=== PATIENT | female | born 1950 | race Caucasian/White ===

== ENCOUNTER 2019-06-30 13:09 | Emergency (ER) | payer MEDICARE, SELFPAY ==
--- NOTE | ~2019-06-30 | XR_ITS ---
EXAMINATION: XR abdomen/kub 1V DATE: 06/30/2019 14:23 INDICATION: Right lower quadrant abdominal pain. Diarrhea. TECHNIQUE: A supine view of the abdomen on 2 radiographs was obtained. COMPARISON: None. FINDINGS: There are no dilated loops of bowel. There is a paucity of stool in the colon. Calcificatio ns in the left pelvis are likely phleboliths. There is a total right hip arthroplasty. IMPRESSION: 1. Normal bowel gas pattern. Reviewed, dictated and finalized at location A. [employer] WORK[employer]
[2019-06-30 13:22] VITALS: BP 154/74; PULSE 74; RESP 19; TEMP 37.8; O2SAT 99
--- NOTE | 2019-06-30 14:00 | ED.GENADULT ---
HPI - General Adult General Chief complaint: Abdominal Pain Stated complaint: LOWER R ABD PAIN Time Seen by Provider: 06/30/19 14:00 History of Present Illness HPI narrative: 68-year-old female presents with complaints of intermittent right lower abdomen pain for 3-4 days. No treatment. No significant pelvic pain. No vaginal discharge. No concerns for STDs. No fever or chills. No nausea, vomiting, or diarrhea. No flank pain. Exacerbating factors consist of palpation to RT lower quadrant and certain movements. Denies dysuria, hematuria, and vaginal bleeding. No blood in stool or constipation. Last BM was 06/30/19, normal loose stool per Rut due to history of IBS. History of Diverticulitis and Appendectomy. No cough or dyspnea. Denies chest pain, back pain, headache, and dizziness. Rut says no known injury did recall pulling grand kids up and down hills in a wagon 5-6 days ago. Urine out put with in normal limits. Some parts of this dictation were generated by voice recognition software and may contain typographical and/or grammatical inaccuracies. Related Data Home Medications Medication Instructions Recorded Confirmed chlordiazepoxide HCl 10 mg capsule 10 mg PO Q12H 06/20/19 06/30/19 furosemide 20 mg tablet 20 mg PO QAM PRN 06/20/19 06/30/19 potassium chloride 10 mEq 10 meq PO DAILY 06/20/19 06/30/19 tablet,extended release(part/cryst) Allergies Allergy/AdvReac Type Severity Reaction Status Date / Time Sulfa (Sulfonamide Allergy Severe Swelling Verified 06/20/19 11:55 Antibiotics) of Lip/Tongue/Throat sulfamethizole Allergy Severe Swelling Verified 06/20/19 11:55 of Lip/Tongue/Throat lisinopril Allergy Unknown Skin Verified 06/20/19 11:55 Reaction Review of Systems Review of Systems: Narrative: CONSTITUTIONAL: Denies fever, chills, sweats. EYES: Denies visual changes, redness, discharge. ENT: Denies rhinorrhea, congestion, sore throat, otalgia. CARDIOVASCULAR: Denies chest pain, palpitations, edema. RESPIRATORY: Denies dyspnea, wheezing, cough. GASTROINTESTINAL: Complains of intermittent right lower abdominal pain. Denies nausea, vomiting, diarrhea. GENITOURINARY: Denies dysuria, hematuria, abnormal discharge. SKIN: Denies rash or itching. MUSCULOSKELETAL: Denies acute back pain, joint pain, or myalgia. NEUROLOGIC: Denies numbness or focal weakness. PSYCHIATRIC: Denies anxiety or depression. All other systems reviewed are negative, except as documented in HPI and below. [facility] Past Medical History Medical History (Updated 07/02/19 @ 00:14 by ANALIA Freeman) Adjustment disorder with anxious mood Allergic rhinitis Essential (primary) hypertension Gastro-esophageal reflux disease with esophagitis Hypertension Irritable bowel syndrome Melanoma Pelvic adhesions Polyp of colon Right inguinal hernia Surgical History Surgical History (Updated 06/30/19 @ 14:16 by ANALIA Freeman) H/O right inguinal hernia repair History of hip surgery Total left hip then a revision Hx of appendectomy Family History Family History (Updated 06/30/19 @ 14:17 by ANALIA Freeman) Mother Heart disease Hypertension Diabetes mellitus Breast cancer Father Heart disease Hypertension Diabetes mellitus Social History Social History (Updated 06/30/19 @ 14:17 by ANALIA Freeman) Smoking status: Never smoker Second hand tobacco smoke exposure: No Alcohol intake: current Substance use: never Living arrangements: with family Occupation/Education: retired Gender identity (if verbalized by the patient): Female Comments At time of signature, agree with nurse past medical, surgical, social, and family history. There is no relevant family history pertinent to the presenting complaint. Exam Narrative: Exam Narrative: GENERAL: This is a well-nourished, well-developed patient, in no apparent distress. Talks in full sen
== END 2019-06-30 14:58 | disposition home or self-care (01) ==
PROVIDERS: Emergency Provider Nurse Practitioner Family; PCP Family Medicine
DX: R10.31 Right lower quadrant pain (principal); I10 Essential (primary) hypertension; K21.0 Gastro-esophageal reflux disease with esophagitis; Z85.820 Personal history of malignant melanoma of skin; Z96.642 Presence of left artificial hip joint
CPT/HCPCS: 74018; 99213; G0463

== ENCOUNTER 2020-03-10 12:57 | Emergency (ER) | payer MEDICARE, SELFPAY ==
[2020-03-10 13:12] VITALS: BP 164/74; PULSE 71; RESP 16; TEMP 36.9; O2SAT 98
--- NOTE | 2020-03-10 13:37 | ED.URI ---
HPI - URI/Sore Throat General Chief Complaint: Upper Respiratory Infection Stated Complaint: sore throat Source: patient Mode of arrival: ambulatory Limitations: no limitations History of Present Illness HPI Narrative: Patient is a 69-year-old female who presents complaining of sore throat. She reports sore throat x3 to 4 days. Denies fever, denies cough, denies shortness of breath. She has not been taking [id number] medications at this time. MD elicited complaint: sore throat Related Data Allergies Allergy/AdvReac Type Severity Reaction Status Date / Time Sulfa (Sulfonamide Allergy Severe Swelling Verified 03/10/20 13:23 Antibiotics) of Lip/Tongue/Throat sulfamethizole Allergy Severe Swelling Verified 03/10/20 13:23 of Lip/Tongue/Throat lisinopril Allergy Unknown Skin Verified 03/10/20 13:23 Reaction Review of Systems Review of Systems: Narrative: CONSTITUTIONAL: Denies fever, chills, or sweats. EYES: Denies visual changes, redness, or discharge. ENT: Denies rhinorrhea, congestion, reports sore throat CARDIOVASCULAR: Denies chest pain, palpitations, or edema. RESPIRATORY: Denies cough or dyspnea. GASTROINTESTINAL: Denies abdominal pain, nausea, vomiting, or diarrhea. GENITOURINARY: Denies dysuria or hematuria. SKIN: Denies rash or itching. MUSCULOSKELETAL: Denies back pain, joint pain, or myalgia. NEUROLOGIC: Denies headache, numbness, dizziness, or weakness. PSYCHIATRIC: Denies anxiety or depression. [facility] Past Medical History Medical History Adjustment disorder with anxious mood Allergic rhinitis Essential (primary) hypertension Gastro-esophageal reflux disease with esophagitis Hypertension Irritable bowel syndrome Melanoma Pelvic adhesions Polyp of colon Right inguinal hernia Seborrheic keratoses, inflamed Surgical History Surgical History H/O right inguinal hernia repair History of hip surgery Total left hip then a revision Hx of appendectomy Family History Family History Mother Heart disease Hypertension Diabetes mellitus Breast cancer Father Heart disease Hypertension Diabetes mellitus Social History Social History Smoking status: Never smoker Second hand tobacco smoke exposure: No Alcohol intake: current Substance use: never Gender identity (if verbalized by the patient): Female Exam Narrative: Exam Narrative: GENERAL: Well-appearing, well-nourished, and in no acute distress. HEAD: Normocephalic, atraumatic. EYES: No redness or drainage. ENT: Mucous membranes pink and moist. Throat normal erythema, edema and area of ulceration. Uvula midline. NECK: AROM. Supple. No lymphadenopathy. CHEST: No respiratory distress. EXTREMITIES: Normal range of motion. SKIN: Warm, dry, no rash. NEURO: No focal deficits. Alert and oriented x3. Gait steady. PSYCH: Normal affect. No signs of depression or anxiety. Course Vital Signs Vital signs: Vital Signs Temperature 36.9 C 03/10/20 13:12 Pulse Rate 71 03/10/20 13:12 Respiratory Rate 16 03/10/20 13:12 Blood Pressure 164/74 H 03/10/20 13:12 Pulse Oximetry 98 03/10/20 13:12 Temperature 36.9 C 03/10/20 13:12 Pulse Rate 71 03/10/20 13:12 Respiratory Rate 16 03/10/20 13:12 Blood Pressure 164/74 H 03/10/20 13:12 Pulse Oximetry 98 03/10/20 13:12 Reviewed. Patient has been instructed to follow-up with her PCP regarding her blood pressure. MDM - URI/Sore Throat MDM Narrative Medical decision making narrative: Patient's rapid strep and influenza are negative at this time. Discussed with patient Covid testing and quarantine. Patient to have Covid testing. Patient is stable for discharge to home with outpatient follow-up. Patient rob
== END 2020-03-10 14:01 | disposition home or self-care (01) ==
PROVIDERS: Emergency Provider Nurse Practitioner; PCP Family Medicine
DX: J02.9 Acute pharyngitis, unspecified (principal); Z20.828 Contact with and (suspected) exposure to other viral communicable diseases; I10 Essential (primary) hypertension; K21.00 Gastro-esophageal reflux disease with esophagitis, without bleeding; Z85.820 Personal history of malignant melanoma of skin
CPT/HCPCS: 87081; 87804; 87880; 99213; G0463

== ENCOUNTER 2020-03-11 06:51 | Outpatient (NON) | payer MEDICARE, SELFPAY ==
[2020-03-12 00:30] LABS: SARS-CoV-2 RNA PCR Negative
== END 2020-03-11 06:52 ==
LOC: ANHCOVIDDT 07:10
PROVIDERS: PCP Family Medicine; Visit Provider Family Medicine
DX: Z20.828 Contact with and (suspected) exposure to other viral communicable diseases (principal)
CPT/HCPCS: 87635; C9803; U0003

== ENCOUNTER → 2020-09-17 09:26 | Outpatient (CLI) | payer MEDICARE, SELFPAY ==
--- NOTE | ~2020-09-17 | XR_ITS ---
XR chest 2V DATE: 09/17/2020 09:38 INDICATION: Dyspnea TECHNIQUE: PA and lateral views COMPARISON: 06/02/2012 PA and lateral chest FINDINGS: Heart size is within normal limits with transverse screw thoracic ratio approximately 14/30 . There is minimal aortic unfolding. No hilar or mediastinal enlargement. No pulmonary infiltrate or consolidation, pleural effusion or pulmonary vascular congestion or pneumo thorax is detected. There is mild discoid scarring or less likely discoid atelectasis at the lingula, with similar findin g on 06/02/2012. Dextroscoliosis and degenerative spurring of the thoracic spine. IMPRESSION: No active disease Reviewed, dictated and finalized at location B. IMPRESSION: No active disease
== END ==
PROVIDERS: PCP Family Medicine; Visit Provider Family Medicine
DX: R06.00 Dyspnea, unspecified (principal)
CPT/HCPCS: 71046

== ENCOUNTER 2020-09-18 13:47 | Emergency (ER) | payer MEDICARE, SELFPAY ==
[2020-09-18 13:54] VITALS: BP 161/71; PULSE 76; RESP 16; TEMP 36.8; O2SAT 98
--- NOTE | 2020-09-18 13:57 | ED.SOB ---
HPI - SOB/Dyspnea General Chief Complaint: Shortness of Breath/Dyspnea Stated Complaint: shortness of breath Time Seen by Provider: 09/18/20 14:18 Source: patient and RN notes reviewed Mode of arrival: ambulatory Limitations: no limitations History of Present Illness HPI Narrative: 69-year-old female presents with concern for shortness of breath. Reports since she has been feeling winded with activity such as walking longer distances and using stairs. She reports a feeling of not being able to get a full breath or expel a full breath. She reports she was seen by her doctor at the beginning of August and was given amoxicillin for bronchitis which did not improve her symptoms. She denies frequent cough or regular cough. Reports occasional cough with postnasal drainage. She denies fever, body aches. She reports bilateral lower extremity swelling, reports she has had this on a chronic basis and has as needed Lasix that she uses. Reports her swelling has been worse lately. She reports recently taking her Lasix, which she only takes when she needs it, and had a 8 pound weight loss overnight with the Lasix. She denies chest pain, diaphoresis. She reports she has an appointment for an echocardiogram on October 31. She also reports over the last several days she has had postnasal drainage and some nasal congestion, occasional cough. MD elicited complaint: shortness of breath Related Data Home Medications Medication Instructions Recorded Confirmed aspirin 81 mg tablet,delayed 81 mg PO DAILY 09/01/20 09/01/20 release biotin 5,000 mcg disintegrating 10,000 mcg PO DAILY 09/01/20 09/01/20 tablet furosemide 20 mg tablet 20 mg PO DAILY PRN tablet 09/01/20 09/01/20 melatonin 5 mg chewable tablet 5 mg PO DAILY 09/01/20 09/01/20 multivitamin 1 tablet PO DAILY 09/01/20 09/01/20 potassium chloride 20 mEq oral 20 meq PO DAILY PRN 09/01/20 09/01/20 packet L. [id number] cit-yeast cap PO 09/18/20 [Culturelle Immune Defense] chlordiazepoxide HCl 10 mg PO BID PRN 09/18/20 09/18/20 ivermectin 6 mg PO ONCE 09/18/20 09/18/20 vitamin E 800 unit PO DAILY 09/18/20 09/18/20 Allergies Allergy/AdvReac Type Severity Reaction Status Date / Time Sulfa (Sulfonamide Allergy Severe Swelling Verified 09/18/20 13:52 Antibiotics) of Lip/Tongue/Throat sulfamethizole Allergy Severe Swelling Verified 09/18/20 13:52 of Lip/Tongue/Throat lisinopril Allergy Unknown Skin Verified 09/18/20 13:52 Reaction Review of Systems Review of Systems: Narrative: CONSTITUTIONAL: Denies malaise, chills, sweats, or fever. EYES: Denies visual changes, redness, or discharge. ENT: Reports rhinorrhea, congestion. Denies sinus pain, otalgia and sore throat. CARDIOVASCULAR: Denies chest pain, palpitations, or edema. RESPIRATORY: Reports occasional cough. Reports dyspnea. GASTROINTESTINAL: Denies abdominal pain, nausea, vomiting, diarrhea SKIN: Denies rash or itching. MUSCULOSKELETAL: Denies myalgia. NEUROLOGIC: Denies headache. All systems reviewed & are unremarkable except as noted in HPI and below PMFSH Past Medical History Medical History Adjustment disorder with anxious mood Allergic rhinitis Essential (primary) hypertension Gastro-esophageal reflux disease with esophagitis Hypertension Irritable bowel syndrome Melanoma Pelvic adhesions Polyp of colon Right inguinal hernia Seborrheic keratoses, inflamed Surgical History Surgical History H/O right inguinal hernia repair History of hip surgery Total left hip then a revision Hx of appendectomy Family History Family History Mother Heart disease Hypertension Diabetes mellitus Breast cancer Father Heart disease Hypertension Diabetes mellitus Social History Social History (Reviewed 09/01/20
[2020-09-18 13:59] VITALS: BP 161/71; PULSE 76; RESP 16; TEMP 36.8; O2SAT 98
== END 2020-09-18 14:40 | disposition home or self-care (01) ==
PROVIDERS: Emergency Provider Nurse Practitioner; PCP Family Medicine
DX: R06.02 Shortness of breath (principal); J30.2 Other seasonal allergic rhinitis; I10 Essential (primary) hypertension; K21.00 Gastro-esophageal reflux disease with esophagitis, without bleeding; Z85.820 Personal history of malignant melanoma of skin
CPT/HCPCS: 99213; G0463

== ENCOUNTER 2020-10-25 17:06 | Emergency (ER) | payer MEDICARE, SELFPAY ==
[2020-10-25 17:14] VITALS: BP 203/77; PULSE 81; RESP 16; TEMP 37.1; O2SAT 98
--- NOTE | 2020-10-25 17:15 | ED.GENADULT ---
HPI - General Adult General Chief complaint: Upper Respiratory Infection Stated complaint: head pain/neck pain/ear pain Time Seen by Provider: 10/25/20 17:16 Source: patient Mode of arrival: ambulatory Limitations: no limitations History of Present Illness HPI narrative: 69-year-old female patient presents to the [facility] with complaints of a right-sided headache that started approximately 1 hour ago. Patient states she is also been having issues with feeling like her ear has been full on the right side and complains of pain behind the right ear when she touches the area. Patient states she is had a little bit of a runny nose and stuffy nose recently. Denies taking any thing for the headache prior to arrival today. Denies taking any sinus medication. Patient states she does also have a little history of anxiety. Patient states that she had an echocardiogram last month which was okay that she is aware of. Patient states she is supposed to be following up with her doctor next week. Patient denies chest pain, shortness of breath, nausea, vomiting or diarrhea. Patient states she was concerned about the headache and to make sure it was not an aneurysm. Related Data Home Medications Medication Instructions Recorded Confirmed aspirin 81 mg tablet,delayed 81 mg PO DAILY 09/01/20 09/18/20 release biotin 5,000 mcg disintegrating 10,000 mcg PO DAILY 09/01/20 09/18/20 tablet melatonin 5 mg chewable tablet 6 mg PO DAILY 09/01/20 09/18/20 multivitamin 1 tablet PO DAILY 09/01/20 09/18/20 L. [id number] cit-yeast cap PO 09/18/20 [Culturelle Immune Defense] ivermectin 6 mg PO ONCE 09/18/20 09/18/20 vitamin E 800 unit PO DAILY 09/18/20 09/18/20 Allergies Allergy/AdvReac Type Severity Reaction Status Date / Time Sulfa (Sulfonamide Allergy Severe Swelling Verified 09/18/20 13:52 Antibiotics) of Lip/Tongue/Throat sulfamethizole Allergy Severe Swelling Verified 09/18/20 13:52 of Lip/Tongue/Throat lisinopril Allergy Unknown Skin Verified 09/18/20 13:52 Reaction Review of Systems Review of Systems: Narrative: CONSTITUTIONAL: Denies fever, chills, or sweats. EYES: Denies visual changes, redness, or discharge. ENT: Denies rhinorrhea, congestion, sore throat, or otalgia. CARDIOVASCULAR: Denies chest pain, palpitations, or edema. RESPIRATORY: Denies cough or dyspnea. GASTROINTESTINAL: Denies abdominal pain, nausea, vomiting, or diarrhea. GENITOURINARY: Denies dysuria or hematuria. SKIN: Denies rash or itching. MUSCULOSKELETAL: Denies back pain, joint pain, or myalgia. NEUROLOGIC: Positive right-sided headache x1 hour, denies numbness, or weakness. PSYCHIATRIC: Denies anxiety or depression. [facility] Past Medical History Medical History Adjustment disorder with anxious mood Allergic rhinitis Essential (primary) hypertension Gastro-esophageal reflux disease with esophagitis Hypertension Irritable bowel syndrome Melanoma Pelvic adhesions Polyp of colon Right inguinal hernia Seborrheic keratoses, inflamed Surgical History Surgical History H/O right inguinal hernia repair History of hip surgery Total left hip then a revision Hx of appendectomy Family History Family History Mother Heart disease Hypertension Diabetes mellitus Breast cancer Father Heart disease Hypertension Diabetes mellitus Social History Social History Smoking status: Never smoker Second hand tobacco smoke exposure: No Alcohol intake: current Substance use: never Gender identity (if verbalized by the patient): Female Comments At the time of my signature I agree with nursing past medical history, surgical, social, and family history. There is no relevant family history pertinent to
--- NOTE | 2020-10-25 17:34 | ECG_ITS ---
Measurements Intervals [place] Rate: 78 P: 38 LA: 171 QRS: -14 QRSD: 88 T: 1 QT: 383 QTc: 436 Interpretive Statements SINUS RHYTHM VOLTAGE CRITERIA FOR LVH POOR R WAVE PROGRESSION, ANTERIOR LEADS BORDERLINE ST-T WAVE ABNORMALITY- ANT/INF LEADS BASELINE ARTIFACT- I, II, III, AVR, AVL BORDERLINE ECG Electronically Signed On 10-25-2020 19:31:54 CDT by Mendez Alvarez D.O.
== END 2020-10-25 17:54 | disposition short-term general hospital (02) ==
PROVIDERS: Emergency Provider Nurse Practitioner Family; PCP Family Medicine
DX: R51.9 Headache, unspecified (principal); I10 Essential (primary) hypertension; K21.00 Gastro-esophageal reflux disease with esophagitis, without bleeding; Z79.82 Long term (current) use of aspirin
CPT/HCPCS: 93005; 99213; G0463

== ENCOUNTER 2020-10-25 18:17 | Emergency (ER) | payer MEDICARE, SELFPAY ==
[2020-10-25] VITALS (7 sets, daily range): BP systolic 149–215; BP diastolic 58–94; PULSE 78–84; RESP 15–22; TEMP 36.4; O2SAT 92–98
--- NOTE | ~2020-10-25 | CT_ITS ---
EXAMINATION: CT brain wo con DATE: 10/25/2020 20:25 INDICATION: Headache. TECHNIQUE: Computed tomography (CT) of the head was performed without intravenous contrast. The mA wa s adjusted according to patient size. Iterative reconstruction technique was employed. The dose-lengt h product was 605.33 mGy-cm. COMPARISON: None FINDINGS: There is no intracranial hemorrhage, acute infarction, or abnormal intracranial mass lesion . The ventricles are normal in size. The orbits are normal. The paranasal sinuses are clear. The mast oid air cells are normal. IMPRESSION: 1. Normal brain. Reviewed, dictated and finalized at location A. IMPRESSION: 1. Normal brain.
--- NOTE | 2020-10-25 18:22 | ECG_ITS ---
Measurements Intervals [place] Rate: 80 P: 54 ID: 166 QRS: -16 QRSD: 98 T: 0 QT: 391 QTc: 452 Interpretive Statements SINUS RHYTHM POSSIBLE LEFT ATRIAL ENLARGEMENT DELAYED PRECORDIAL R/S TRANSITION POSSIBLE LEFT VENTRICULAR HYPERTROPHY BORDERLINE T WAVE ABNORMALITY- INFERIOR LEADS BASELINE ARTIFACT- II, III, AVF Electronically Signed On 10-26-2020 7:46:43 CDT by Mendez Alvarez D.O.
[2020-10-25 18:41] LABS: Basophils Percent Auto 0.5 % (0.2-1.2); Eosinophils Absolute Auto 0.2 K/mm3 (0-0.3); Hematocrit 43.9 % (37.0-47.0); Hemoglobin 14.3 g/dL (12.0-15.0); Immature Granulocyte Absolute 0.03 K/mm3 (0.00-0.031); Immature Granulocyte Percent A 0.3 % (0-0.5); Lymphocytes Absolute Auto 1.83 K/mm3 (0.9-3.2); Lymphocytes Percent Auto 21.1 % (18.3-44.2); Mean Corpuscular HGB Conc 32.6 g/dl (32-36); Mean Corpuscular Volume 95.2 fl (80-100); Mean Platelet Volume 10.4 fl (7.4-10.4); Monocytes Absolute Auto 0.5 K/mm3 (0.1-0.6); Monocytes Percent Auto 5.2 % (2.6-8.5); Neutrophils Absolute Auto 6.2 K/mm3 (1.3-6.7); Neutrophils Percent Auto 70.9 % (45.5-73.1); Platelet Count Result 289 k/mm3 (150-375); Red Blood Count 4.61 M/mm3 (4.2-5.4); Red Cell Distribution Width 13.5 % (11.5-14.5); White Blood Count 8.7 K/mm3 (4.5-10.0)
[2020-10-25 18:52] LABS: Alanine Aminotransferase 38 U/L (4-35); Albumin Level 4.6 g/dL (3.5-5.1); Alkaline Phosphatase 81 U/L (38-126); Anion Gap 9 mmol/L (8-16); Aspartate Amino Transferase 40 U/L (14-36); Bilirubin,Total 0.3 mg/dL (0.2-1.3); Blood Urea Nitrogen 16 mg/dL (7-17); Carbon Dioxide 28 mmol/L (22-30); Chloride 107 mmol/L (98-107); Estimated CRCL calculation 45 ml/min; Estimated Glomerular Filt Rate 55; Glucose 93 mg/dL (65-105); Potassium 4.1 mmol/L (3.4-5.0); Sodium 144 mmol/L (137-145)
--- NOTE | 2020-10-25 19:48 | ED.GENADULT ---
HPI - General Adult General Chief complaint: Recheck/Abnormal Lab/Rx Stated complaint: Hedache, High Blood Pressure Time Seen by Provider: 10/25/20 19:45 History of Present Illness HPI narrative: Patient is 69 years old white female came to the emergency room with occipital headache started few hours ago lasted for 2 hours then resolved. Also been complaining of postnasal discharge for the last few weeks. Patient reports a lot of stress in her life lately, been taking care of 3 grandkids on average 3 to 4 days a week and one of them is extremely L, also taking care of her elderly mom who is extremely talkative and does not sleep at night. Patient used to be on antidepression/anxiety medication stopped lately because of the potential side effects. Patient on Bystolic 10 mg once a day. Does not check her blood pressure on regular basis, patient went to urgent care today then referred to our emergency room because of elevated blood pressure. Patient denies any fever, chills, nausea, vomiting, chest pain, shortness of breath, back pain. Related Data Home Medications Medication Instructions Recorded Confirmed aspirin 81 mg tablet,delayed 81 mg PO DAILY 09/01/20 09/18/20 release biotin 5,000 mcg disintegrating 10,000 mcg PO DAILY 09/01/20 09/18/20 tablet melatonin 5 mg chewable tablet 6 mg PO DAILY 09/01/20 09/18/20 multivitamin 1 tablet PO DAILY 09/01/20 09/18/20 L. [id number]-D-[id number] cit-yeast cap PO 09/18/20 [Culturelle Immune Defense] ivermectin 6 mg PO ONCE 09/18/20 09/18/20 vitamin E 800 unit PO DAILY 09/18/20 09/18/20 Allergies Allergy/AdvReac Type Severity Reaction Status Date / Time Sulfa (Sulfonamide Allergy Severe Swelling Verified 10/25/20 19:35 Antibiotics) of Lip/Tongue/Throat sulfamethizole Allergy Severe Swelling Verified 10/25/20 19:35 of Lip/Tongue/Throat lisinopril Allergy Unknown Skin Verified 10/25/20 19:35 Reaction Review of Systems Review of Systems: Narrative: CONSTITUTIONAL: Denies fever, chills, or sweats. EYES: Denies visual changes, redness, or discharge. ENT: Denies rhinorrhea, congestion, sore throat, or otalgia. CARDIOVASCULAR: Denies chest pain, palpitations, or edema. RESPIRATORY: Denies cough or dyspnea. GASTROINTESTINAL: Denies abdominal pain, nausea, vomiting, or diarrhea. GENITOURINARY: Denies dysuria or hematuria. SKIN: Denies rash or itching. MUSCULOSKELETAL: Denies back pain, joint pain, or myalgia. NEUROLOGIC: Denies headache, numbness, or weakness. PSYCHIATRIC: Denies anxiety or depression. [facility] Past Medical History Medical History Adjustment disorder with anxious mood Allergic rhinitis Essential (primary) hypertension Gastro-esophageal reflux disease with esophagitis Hypertension Irritable bowel syndrome Melanoma Pelvic adhesions Polyp of colon Right inguinal hernia Seborrheic keratoses, inflamed Surgical History Surgical History H/O right inguinal hernia repair History of hip surgery Total left hip then a revision Hx of appendectomy Family History Family History Mother Heart disease Hypertension Diabetes mellitus Breast cancer Father Heart disease Hypertension Diabetes mellitus Social History Social History Smoking status: Never smoker Second hand tobacco smoke exposure: No Alcohol intake: current Substance use: never Gender identity (if verbalized by the patient): Female Exam Narrative: Exam Narrative: General appearance: Well-developed, well-nourished Skin: Normal color Head: Normocephalic, nontraumatic Eyes: Clear conjunctiva ENT: Oropharynx normal, ears normal, nose normal Neck: Supple, nontender Chest and respiratory: Airway patent, no respiratory distress, no accessory muscle use Hear
[2020-10-25] MEDS: LORazepam (*CRX) 0.5 MG TABLET 1 MG PO (20:05)
--- NOTE | 2020-10-25 20:16 | PC.NURSE ---
Pt to CT at this time.
[2020-10-25] MEDS: LABETALOL HCL INJ 100 MG/20 ML VIAL 20 MG IV PUSH (20:59)
[2020-10-25] MEDS: LABETALOL HCL INJ 100 MG/20 ML VIAL 10 MG IV PUSH (22:08)
== END 2020-10-25 22:48 | disposition home or self-care (01) ==
PROVIDERS: Emergency Provider Emergency Medicine; PCP Family Medicine
DX: R51.9 Headache, unspecified (principal); I10 Essential (primary) hypertension; F43.22 Adjustment disorder with anxiety; K21.9 Gastro-esophageal reflux disease without esophagitis
CPT/HCPCS: 36415; 70450; 80053; 85025; 93005; 96374; 96376; 99284; A9270

== ENCOUNTER 2020-12-01 23:13 | Emergency (ER) | payer MEDICARE, SELFPAY ==
[2020-12-01 23:26] VITALS: BP 218/88; PULSE 89; RESP 16; TEMP 36.7; O2SAT 99
--- NOTE | 2020-12-01 23:29 | ECG_ITS ---
Measurements Intervals [place] Rate: 80 P: 48 MS: 170 QRS: -15 QRSD: 98 T: 12 QT: 384 QTc: 443 Interpretive Statements SINUS RHYTHM VOLTAGE CRITERIA FOR LVH BORDERLINE R WAVE PROGRESSION, ANTERIOR LEADS BASELINE ARTIFACT- II, III, AVF, V4-V6 BORDERLINE ECG Electronically Signed On 12-02-2020 6:30:30 CDT by Mendez Alvarez D.O.
--- NOTE | 2020-12-01 23:29 | PC.NURSE ---
Spoke with PILLO Slater about pt's sx and he requested an EKG and no other orders at this time. Pt returned to .
[2020-12-02 01:25] VITALS: BP 144/86; PULSE 75; RESP 18; O2SAT 98
--- NOTE | 2020-12-02 01:46 | ED.GENADULT ---
HPI - General Adult General Chief complaint: Recheck/Abnormal Lab/Rx Stated complaint: htn Time Seen by Provider: 12/02/20 01:34 Source: patient, family and RN notes reviewed Mode of arrival: ambulatory Limitations: no limitations History of Present Illness HPI narrative: Patient 69 years old white female presented to the ED because of elevated blood pressure. Patient is asymptomatic. Patient does check her blood pressure at least 8 times a day over the last few days. Her numbers are high basically running about 182 210/100 110. On arrival to the emergency room was 213/88, when I went see the patient in the room was 144/86. Patient on bystolic 10 mg once a day which increased to 20 mg once a day few weeks ago. Patient also started on Zoloft over the last 3 weeks, currently patient on Librium. History of anxiety, insomnia and depression. I seen the patient few weeks ago for the same problem and I prescribed clonidine 0.1 mg to be taken maximum twice a day if systolic blood pressure 160 or above. Patient did not use the medicine. Related Data Home Medications Medication Instructions Recorded Confirmed aspirin 81 mg tablet,delayed 81 mg PO DAILY 09/01/20 10/27/20 release biotin 5,000 mcg disintegrating 10,000 mcg PO DAILY 09/01/20 10/27/20 tablet melatonin 5 mg chewable tablet 6 mg PO DAILY 09/01/20 10/27/20 multivitamin 1 tablet PO DAILY 09/01/20 10/27/20 L. [id number] cit-yeast cap PO 09/18/20 10/27/20 [Culturelle Immune Defense] ivermectin 6 mg PO ONCE 09/18/20 10/27/20 vitamin E 800 unit PO DAILY 09/18/20 10/27/20 Allergies Allergy/AdvReac Type Severity Reaction Status Date / Time Sulfa (Sulfonamide Allergy Severe Swelling Verified 12/02/20 01:31 Antibiotics) of Lip/Tongue/Throat sulfamethizole Allergy Severe Swelling Verified 12/02/20 01:31 of Lip/Tongue/Throat lisinopril Allergy Unknown Skin Verified 12/02/20 01:31 Reaction Review of Systems Review of Systems: CONSTITUTIONAL: Denies fever, chills, or sweats. EYES: Denies visual changes, redness, or discharge. ENT: Denies rhinorrhea, congestion, sore throat, or otalgia. CARDIOVASCULAR: Denies chest pain, palpitations, or edema. RESPIRATORY: Denies cough or dyspnea. GASTROINTESTINAL: Denies abdominal pain, nausea, vomiting, or diarrhea. GENITOURINARY: Denies dysuria or hematuria. SKIN: Denies rash or itching. MUSCULOSKELETAL: Denies back pain, joint pain, or myalgia. NEUROLOGIC: Denies headache, numbness, or weakness. PSYCHIATRIC: Denies anxiety or depression. PMFSH Past Medical History Medical History Adjustment disorder with anxious mood Allergic rhinitis Essential (primary) hypertension Gastro-esophageal reflux disease with esophagitis HTN (hypertension), benign Hypertension Irritable bowel syndrome Melanoma Pelvic adhesions Polyp of colon Right inguinal hernia Seborrheic keratoses, inflamed Surgical History Surgical History H/O right inguinal hernia repair History of hip surgery Total left hip then a revision Hx of appendectomy Family History Family History Mother Heart disease Hypertension Diabetes mellitus Breast cancer Father Heart disease Hypertension Diabetes mellitus Social History Social History Second hand tobacco smoke exposure: No Alcohol intake: current Substance use: never Gender identity (if verbalized by the patient): Female Exam Narrative: General appearance: Well-developed, well-nourished Skin: Normal color Head: Normocephalic, nontraumatic Eyes: Clear conjunctiva ENT: Oropharynx normal, ears normal, nose normal Neck: Supple, nontender Chest and respiratory: Airway patent, no respiratory distress, no accessory muscle use Heart: Regular rate/rhythm
[2020-12-02] MEDS: LORazepam (*CRX) 0.5 MG TABLET 1 MG PO (02:05)
[2020-12-02 02:21] VITALS: BP 143/68; PULSE 66; RESP 18; O2SAT 99
== END 2020-12-02 02:23 | disposition home or self-care (01) ==
PROVIDERS: Emergency Provider Emergency Medicine; PCP Family Medicine
DX: F41.9 Anxiety disorder, unspecified (principal); I10 Essential (primary) hypertension; F32.9 Major depressive disorder, single episode, unspecified; K21.00 Gastro-esophageal reflux disease with esophagitis, without bleeding; K58.9 Irritable bowel syndrome, unspecified; Z85.820 Personal history of malignant melanoma of skin; Z86.010 Personal history of colon polyps; R94.31 Abnormal electrocardiogram [ECG] [EKG]
CPT/HCPCS: 93005; 99283; A9270

== ENCOUNTER → 2022-05-28 11:14 | Outpatient (CLI) | payer MEDICARE, SELFPAY ==
--- NOTE | ~2022-05-28 | MM_ITS ---
EXAMINATION: MM screening cherelle BI w shai HISTORY: Screening TECHNIQUE: Craniocaudal and mediolateral oblique 3-D tomosynthesis images were obtained and synthetic 2-D images were generated. CAD analysis was submitted and interpreted. COMPARISON: No prior mammogram is available for comparison at this institution. BREAST PARENCHYMAL COMPOSITION: There are scattered areas of fibroglandular density. FINDINGS: There is no evidence of suspicious mass, calcification, or architectural distortion to sugg est malignancy in either breast. There has been no suspicious interval change. IMPRESSION: 1. No mammographic evidence of malignancy. 2. Recommend routine screening mammography in one year. BI-RADS Category 1: Negative Reviewed, dictated and finalized at location [facility]
== END ==
PROVIDERS: PCP Family Medicine; Visit Provider Family Medicine
DX: Z12.31 Encounter for screening mammogram for malignant neoplasm of breast (principal)
CPT/HCPCS: 77063; 77067